=== PATIENT | male | born 1980 | race Caucasian/White ===

== ENCOUNTER 2018-02-23 15:24 | Emergency (ER) | payer MEDICAID ==
[~2018-02-23] VITALS: Ht 170.2 cm; Wt 74.8 kg
[2018-02-23 15:43] VITALS: BP_SYST 128
--- NOTE | 2018-02-23 15:58 | NUR ---
Pt presents to ER c/o epigastric pain 5/10 on pain scale. Pt states pain began around 1300 today, also reports that he has been on a drinking binge since last Wednesday and stopped drinking last night. Pt describes pain as a dull discomfort. Denies nausea / vomiting / diarrhea. Pt states that he was at 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 Pt in no acute distress, speaking full sentences, AOX4, ambulatory, mother at bedside.
--- NOTE | 2018-02-23 16:00 | NUR ---
ER at bedside examining patient.
[2018-02-23] MEDS ORDERED: MAG HYDROX/AL HYDROX/SIMETH 30 ML, BELLADONNA ALKALOIDS/PHENOBARB 10 ML, LIDOCAINE VISC... PO ONE ×3 (16:15)
--- NOTE | 2018-02-23 16:18 | NUR ---
Pt medicated as ordered by Dr. Barros. Pt tolerated well; will continue to monitor.
[2018-02-23 16:29] LABS: HEMATOCRIT 46.2 % (36-54); HEMOGLOBIN 15.9 g/dL (14.0-18.0); MEAN CORPUSCULAR HEMOGLOBIN 32 pg (27-31); MEAN CORPUSCULAR HGB CONC 34 % (32-36); MEAN CORPUSCULAR VOLUME 93 fL (79.0-98.0); PLATELET COUNT (AUTO) 266 K/uL (130-430); RED BLOOD CELL COUNT(AUTO) 4.97 MIL/uL (4.2-6.2); RED CELL DISTRIBUTION WIDTH 12.6 % (9.0-15.0); WHITE BLOOD COUNT (AUTO) 11.9 K/uL (4.8-10.8)
[2018-02-23 16:45] LABS: CALCIUM 9.2 mg/dL (8.4-11.0); CREATININE 0.61 mg/dL (0.55-1.30); POTASSIUM 5.2 mmol/L (3.5-5.1)
--- NOTE | 2018-02-23 16:46 | NUR ---
Pt reports pain level has decreased to 3/10 on pain scale. Will continue to monitor.
[2018-02-23 16:52] LABS: ALBUMIN 4.1 g/dL (3.4-4.8); TOTAL BILIRUBIN 2.3 mg/dL (0.0-1.0)
[2018-02-23 16:56] LABS: ATYPICAL LYMPHOCYTES % 0 % (0-0); BAND % (MANUAL) 0 % (0-6); BASOPHILS % (MANUAL) 0 % (0-2); EOSINOPHILS % (MANUAL) 1 % (0-7); LYMPHOCYTES % (MANUAL) 24 % (20-46); MONOCYTES % (MANUAL) 12 % (0-11)
--- NOTE | 2018-02-23 17:50 | NUR ---
Pt resting on gurney, no signs of distress, will continue to montior until pt is cleared for discharge.
--- NOTE | 2018-02-23 18:31 | NUR ---
Dr. Barros at bedside speaking with pt.
--- NOTE | 2018-02-23 18:36 | NUR ---
blood sugar [address] Barros.
--- NOTE | 2018-02-23 18:40 | NUR ---
# 22 gauge angiocath placed to RAC. Use of asceptic technique. Opsite placed over site. Blood return noted. Flushed with 10 cc of normal saline. No evidence of infiltration noted. Patient tolerated well.
[2018-02-23] MEDS ORDERED: NACL 0.9% 1,000 ML IV ONE (18:45)
--- NOTE | 2018-02-23 18:45 | NUR ---
Medicated per MD orders. IVF infusing with no s/s of infiltration at this time. Will cont to monitor
--- NOTE | 2018-02-23 19:15 | NUR ---
Assumed care of the patient at this time. Patient is calmly resting in ER bed with no signs of distress noted. Patient denies any other complaints.
[2018-02-23 20:10] VITALS: BP_SYST 129
--- NOTE | 2018-02-23 20:10 | NUR ---
Patient given written and verbal discharge instructions and verbalizes understanding. ER MD discussed with patient the results and treatment provided. Patient in stable condition. ID arm band removed. IV catheter removed intact and dressing applied, no active bleeding. Rx of protonix and zofran given. Patient educated on pain management and to follow up with PMD. Pain Scale 0/10. Opportunity for questions provided and answered. Medication side effect fact sheet provided.
== END 2018-02-23 20:10 | disposition home or self-care (01) ==
LOC: SED 15:24
DX: K52.9 Noninfective gastroenteritis and colitis, unspecified (principal); E11.65 Type 2 diabetes mellitus with hyperglycemia; R03.0 Elevated blood-pressure reading, without diagnosis of hypertension
CPT/HCPCS: 36415; 80053; 83690; 85007; 85027; 96360; 99284; J2001; J7030

== ENCOUNTER 2018-07-06 08:32 | Emergency (ER) | payer MEDICAID ==
[~2018-07-06] VITALS: Ht 170.2 cm; Wt 76.2 kg
[2018-07-06 08:32] VITALS: BP_SYST 139
--- NOTE | 2018-07-06 08:32 | NUR ---
BROUGHT BACK TO BED #8 AND TRIAGED. REPORT GIVEN TO MARIELENA
--- NOTE | 2018-07-06 08:39 | NUR ---
Alice smith in EDM - 07/06/18 at 0843 by [email or web address] Patient to bed 08 to [facility] for evaluation. Side rails up. Report given to
--- NOTE | 2018-07-06 08:40 | NUR ---
patient AOx4 with c/o n/v x 3 days. patient states he has a hx of gastritis. patient has no other complaints or injuries at this time.
--- NOTE | 2018-07-06 08:41 | NUR ---
ER at bedside examining patient.
[2018-07-06] MEDS ORDERED: NACL 0.9% 1,000 ML IV ONE (08:49)
[2018-07-06] MEDS ORDERED: MAG HYDROX/AL HYDROX/SIMETH 30 ML, BELLADONNA ALKALOIDS/PHENOBARB 10 ML, LIDOCAINE VISC... PO ONE ×3 (09:00)
[2018-07-06] MEDS ORDERED: ONDANSETRON HCL 4 MG/2 ML VIAL IVP ONE (09:00)
[2018-07-06 09:15] LABS: BILIRUBIN,URINE NEGATIVE (NEGATIVE); BLOOD, URINE NEGATIVE (NEGATIVE); CLARITY/URINE CLEAR (CLEAR); COLOR,URINE YELLOW (YELLOW); GLUCOSE,URINE 3+ (NEGATIVE); KETONES,URINE 3+ (NEGATIVE); LEUKOCYTE ESTERASE ,URINE NEGATIVE (NEGATIVE); NITRITE, URINE NEGATIVE (NEGATIVE); PROTEIN URINE NEGATIVE (NEGATIVE); UROBILINOGEN,URINE 0.2 (0.2-1.0)
[2018-07-06 09:20] LABS: BASOPHILS # (AUTO) 0.1 K/uL (0.0-0.2); BASOPHILS % (AUTO) 1.3 % (0.0-2.0); EOSINOPHILS # (AUTO) 0.2 K/uL (0.0-0.4); HEMATOCRIT 46.5 % (36-54); HEMOGLOBIN 15.7 g/dL (14.0-18.0); LYMPHOCYTES # (AUTO) 1.2 K/uL (1.0-5.5); LYMPHOCYTES % (AUTO) 12.1 % (20.5-51.5); MEAN CORPUSCULAR HEMOGLOBIN 31 pg (27-31); MEAN CORPUSCULAR HGB CONC 34 % (32-36); MEAN CORPUSCULAR VOLUME 90 fL (79.0-98.0); MONOCYTES # (AUTO) 0.8 K/uL (0.0-1.0); NEUTROPHILS # (AUTO) 7.9 K/uL (1.8-7.7); NEUTROPHILS % (AUTO) 76.6 % (40.0-70.0); PLATELET COUNT (AUTO) 234 K/uL (130-430); RED BLOOD CELL COUNT(AUTO) 5.17 MIL/uL (4.2-6.2); RED CELL DISTRIBUTION WIDTH 12.4 % (9.0-15.0); WHITE BLOOD COUNT (AUTO) 10.2 K/uL (4.8-10.8)
[2018-07-06 09:28] LABS: CREATININE 0.82 mg/dL (0.55-1.30); POTASSIUM 4.1 mmol/L (3.5-5.1)
[2018-07-06 09:41] LABS: BACTERIA,URINE FEW /HPF (None Seen); MUCUS,URINE None Seen /LPF (None Seen); RBC,URINE 0-3 /HPF (0-3); WBC,URINE 0-3 /HPF (0-3)
[2018-07-06 10:18] VITALS: BP_SYST 130
--- NOTE | 2018-07-06 10:18 | NUR ---
Patient given written and verbal discharge instructions and verbalizes understanding. ER MD discussed with patient the results and treatment provided. Patient in stable condition. ID arm band removed. IV catheter removed intact and dressing applied, no active bleeding. Rx of Prevacid, zofran given. Patient educated on pain management and to follow up with PMD. Pain Scale 0/10. Opportunity for questions provided and answered. Medication side effect fact sheet provided.
== END 2018-07-06 10:18 | disposition home or self-care (01) ==
LOC: SED 08:32
DX: K29.70 Gastritis, unspecified, without bleeding (principal); R42 Dizziness and giddiness; E11.9 Type 2 diabetes mellitus without complications
CPT/HCPCS: 36415; 80053; 81000; 82150; 83690; 85025; 85610; 96361; 96374; 99283; J2001; J2405; J7030